=== PATIENT | male | born 1970 | race Caucasian/White ===

== ENCOUNTER 2016-12-30 16:50 | Emergency (ER) | payer BC, OTHER ==
[~2016-12-30] VITALS: Ht 175.3 cm; Wt 110.0 kg
[2016-12-30 16:53] VITALS: Ht 175.3 cm; Wt 110.0 kg
--- NOTE | 2016-12-30 17:10 | ERD ---
ER Documentation Chief Complaint Date/Time DATE: 12/30/16 TIME: 17:01 Chief Complaint SORE THROAT,COUGH,HEADACHE X 2 WEEKS HPI 46-year-old male who presented emergency room for sore throat, cough, headache for 2 weeks. He also reports that he has greenish phlegm whenever he coughs. He also complains of frontal sinus tenderness on palpation. Stated that he feels like he had a fever at night but never took his temperature. Stated that he been taking Advil as needed for his throat pain and sinus pain. Denies that this is the worst headache of his life, head trauma, loss of consciousness, dizziness, blurry vision, changes in vision, photophobia, ear pain, difficulty swallowing, neck pain, shoulder pain, chest pain, hemoptysis, abdominal pain, back pain, loss of appetite, nausea, vomiting, hematochezia, diarrhea, constipation, urinary symptoms, bladder and bowel incontinences, extremity weakness, extremity tenderness, numbness or tingling sensation, difficulty walking, recent travel, recent exposure to illness, recent antibiotic use in the last 3 months. Allergy: No known drug allergies. PMH: Denies. Medications: [id number] Advil. Surgery: Denies. Family history: Denies. 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 Denies smoking, use of alcohol, use of illegal drugs. ROS All systems reviewed and are negative except as per history of present illness. Medications Home Meds No Active Prescriptions or Reported Meds Allergies Allergies: Coded Allergies: No Known Drug Allergies (Verified Allergy, Mild, 09/28/11) PMhx/Soc History of Surgery: No Anesthesia Reaction: No Hx Neurological Disorder: No Hx Respiratory Disorders: No Hx Cardiac Disorders: No Hx Psychiatric Problems: No Hx Miscellaneous Medical Probl: No Hx Alcohol Use: No Hx Substance Use: No Hx Tobacco Use: No Physical Exam Vitals Vital Signs Date Time Temp Pulse Resp B/P Pulse Ox O2 Delivery O2 Flow Rate FiO2 12/30/16 16:53 98.9 66 18 141/85 98 Physical Exam CONSTITUTIONAL: Well-appearing; well-nourished. HEAD: Normocephalic; atraumatic. EYES: Conjunctiva clear, sclera non-icteric, EOM intact. PERRLA. Ears: Hearing intact. EACs clear, TMs non-bulging, non-inflamed, translucent & mobile, ossicles normal appearance, No obstructions, no erythema, no discharges Nose: No obstructions. No polyps. No external lesions. Mucosa non-inflamed. No external lesions, septum and turbinates normal. No rhinorrhea. No discharges. Frontal sinus is tender to palpation. Maxillary sinus is tender to palpation. MOUTH: Moist mucous membranes, no lesion, no obstructions, no vesicles, no thrush, patent airway Throat: Uvula in midline. Right tonsil is +2 with erythema, exudate. Left tonsil is +2 with erythema, exudate. Tolerating secretions well. Good gag reflex. Patent airway. Neck: Supple, without lesions, bruits, or adenopathy. No mass. Thyroid non- enlarged and non-tender to palpation. CHEST: Symmetrical chest. Respirations even and not labored. No retractions noted. CARDIOVASCULAR: Normal S1, S2. RRR. No murmurs, gallops. RESPIRATORY: Normal chest excursion with respiration; breath sounds clear and equal bilaterally; no wheezes, rhonchi, or rales. Breathing even and unlabored. Speaking in clear, full, and complete sentences w/ ease. ABDOMEN: Normal bowel sounds normal. Soft, round, non-distended, non-guarding, no tenderness, no rebound, no organomegaly, no masses, no pulsating abdominal mass. No hernia. No peritoneal signs. : No CVA tenderness. BACK: Symmetrical shoulder. Spine is midline without deformity, tenderness. No evidence of trauma or deformity. PELVIS: Stable pelvis. No evidence of trauma or deformity. MUSCULOSKELETAL: Normal gait and station. No misalignment, asymmetry, crepitation, defects, tenderness, masses, effusions, decreased range of motion, instability, atrophy or abnormal strength or tone in the head, neck, spine, ribs , pelvis or extremities. No calf tenderness. NEUROVASCULAR: Distal pulses are present. Pedal pulse are present, equal, and normal. Capillary refills are < 2 seconds. NEUROLOGIC: Alert and oriented x4. Speaks full and clear sentences. Cranial Nerves II-XII normal. Sensation to pain, touch, and proprioception normal. Grossly unremarkable. No neurologic deficits. Romberg test is negative. PSYCHOLOGICAL: The patients mood and manner are appropriate. No hallucinations , delusions. Not SI. Not HI. Has the capacity to decide for self SKIN: Normal for age and ethnicity; warm; dry; good turgor; no apparent lesions or exudates. No rashes, hives, discoloration. Intact. Procedures/MDM Examination: Please see physical examination. Disease process, medical treatment was explained to the patient and family member. They verbalized understanding and agreed with the medical treatment, and follow-up care. Re-evaluation: Denies headache, dizziness, blurred vision, neck pain, difficulty swallowing, chest pain, shoulder pain, back pain, abdominal pain. No nausea and vomiting. Lung sounds are clear to auscultation. Tolerating secretions. Speaks full and clear sentences. Consultation: None. Differential diagnosis: Pneumonia versus bronchitis versus upper respiratory infection versus sinusitis versus strep throat versus otitis media Medical decision makin-year-old male who presented emergency room for sore throat, cough, headache for 2 weeks. He also reports that he has greenish phlegm whenever he coughs. He also complains of frontal sinus tenderness on palpation. Stated that he feels like he had a fever at night but never took his temperature. Stated that he been taking Advil as needed for his throat pain and sinus pain. Patient's complaint, patient's history about his complaint , my physical findings, evaluation are consistent with final diagnosis of tonsillitis, sinusitis, bronchitis. Medications prescribed are the following: Augmentin. Motrin. Pro-Air. Patient and family member are made aware of the side effects and adverse reactions of the medications prescribed. Instructed on when to seek emergent and medical attention in case allergic/anaphylactic reactions or severe side effects and or adverse reactions to medications. Patient and family member verbalized understanding. Patient instructed Instructed to follow-up with his PCP in 24-48 hours. Community resources also provided. Instructed to Call 911 for chest pain, shortness of breath. Advised to come back here in ED as soon as possible for severity of symptoms which includes but not limited to: any new symptoms; shortness of breath/difficulty of breathing; cardiovascular changes; severe gastrointestinal symptoms; signs and symptoms of bleeding and or infection; signs of compartment syndrome/neurovascular changes; neurological changes/deficits. Patient and family member verbalized understanding. Upon discharge, patient is alert and oriented x 4, speaks full and clear sentences, denies pain, has no neurological deficits, has no neurovascular deficits, difficulty of breathing. Breathing even and unlabored. Lung sounds are clear to auscultation. Not in distress. Appears comfortable. Ambulatory with steady gait. Appears satisfied with care provided here in ED. Departure Diagnosis: Primary Impression: Tonsillitis Additional Impressions: Sinusitis Sinusitis, acute frontal Sinusitis, acute maxillary Sinusitis, acute, maxillary Condition: Good Additional Instructions: Patient instructed Instructed to follow-up with his PCP in 24-48 hours. Community resources also provided. Instructed to Call 911 for chest pain, shortness of breath. Advised to come back here in ED as soon as possible for severity of symptoms which includes but not limited to: any new symptoms; shortness of breath/difficulty of breathing; cardiovascular changes; severe gastrointestinal symptoms; signs and symptoms of bleeding and or infection; signs of compartment syndrome/neurovascular changes; neurological changes/deficits. Patient and family member verbalized understanding. NHI PERKINS Dec 30, 2016 17:10
[2016-12-30] MEDS ORDERED: IBUP800T25 PO (17:11)
[2016-12-30] MEDS ORDERED: AMOX1TAB10 PO (17:11)
[2016-12-30] MEDS ORDERED: ALBU8.5H3 INH (17:11)
[2016-12-30] MEDS ORDERED: BENZ100C70 PO (17:12)
[2016-12-30] MEDS ORDERED: ACET325T33 PO (17:12)
== END 2016-12-30 17:15 | disposition home or self-care (01) ==
LOC: FTE 16:50 → E/R 17:15
DX: J03.90 Acute tonsillitis, unspecified (principal); J01.80 Other acute sinusitis; J20.9 Acute bronchitis, unspecified
CPT/HCPCS: 99284

== ENCOUNTER 2017-01-08 06:40 | Emergency (ER) | payer BC ==
[~2017-01-08] VITALS: Ht 175.3 cm; Wt 109.0 kg
[~2017-01-08 06:40] MED LIST: ACET325T33 PO; ALBU8.5H3 INH; AMOX1TAB10 PO; BENZ100C70 PO; DM H; IBUP800T25 PO
[2017-01-08 06:45] VITALS: Ht 175.3 cm; Wt 109.0 kg
[2017-01-08] MEDS ORDERED: KETOROLAC 30 MG INJ IM STA (06:57)
--- NOTE | 2017-01-08 07:01 | ERD ---
ER Documentation Chief Complaint Date/Time DATE: 01/08/17 TIME: 06:58 Chief Complaint left rib pain/injury HPI This is a very pleasant 46-year-old male no past medical history presents with left rib pain and injury while on the job. The patient states that while working approximately 5 days ago he was reaching and then came down and struck the left side of his rib on a metal bar. Since then the patient is describing moderate to severe pain with a pulling sensation in his ribs that is worse to touch. Worse with rotational movement. No significant shortness of breath, no abdominal pain, no nausea or vomiting. ROS All systems reviewed and are negative except as per history of present illness. Medications Home Meds Active Scripts Ibuprofen* (Motrin*) 800 Mg Tab, 800 MG PO Q6H Y for PAIN AND OR ELEVATED TEMP, #30 TAB Prov:RAMANA PRAJAPATI MD 01/08/17 Ondansetron (Ondansetron Odt) 4 Mg Tab.rapdis, 4 MG PO Q6H Y for NAUSEA AND/OR VOMITING, #10 TAB Prov:RAMANA PRAJAPATI MD 01/08/17 Hydrocodone/Acetaminophen ([place] 10-325 Tablet) 1 Each Tablet, 1 TAB PO Q6H Y for PAIN, #12 TAB Prov:RAMANA PRAJAPATI MD 01/08/17 Acetaminophen* (Tylenol*) 325 Mg Tablet, 2 TAB PO Q6 Y for PAIN AND OR ELEVATED TEMP, #20 TAB Prov:NHI PERKINS 12/30/16 Benzonatate* (Tessalon Perle*) 100 Mg Capsule, 100 MG PO Q8H Y for COUGH for 7 Days, CAP Prov:NHI PERKINS 12/30/16 Albuterol Sulfate* (Proair HFA*) 8.5 Gm Hfa.aer.ad, 2 PUFF INH Q4, #1 INHALER Prov:NHI PERKINS 12/30/16 Ibuprofen* (Motrin*) 800 Mg Tab, 800 MG PO Q6H Y for PAIN AND OR ELEVATED TEMP, #30 TAB Prov:NHI PERKINS 12/30/16 Amoxicillin/Potassium Clav (Amox-Clav 875-125 mg Tablet) 875-125 mg Tab, 1 TAB PO BID for 10 Days, #20 TAB Prov:PASILABAN,KLAR F 12/30/16 Allergies Allergies: Coded Allergies: No Known Drug Allergies (Verified Allergy, Mild, 09/28/11) PMhx/Soc History of Surgery: No Anesthesia Reaction: No Hx Neurological Disorder: No Hx Respiratory Disorders: No Hx Cardiac Disorders: No Hx Psychiatric Problems: No Hx Miscellaneous Medical Probl: No Hx Alcohol Use: No Hx Substance Use: No Hx Tobacco Use: No FmHx Family History: No diabetes Physical Exam Vitals Vital Signs Date Time Temp Pulse Resp B/P Pulse Ox O2 Delivery O2 Flow Rate FiO2 01/08/17 06:45 97.7 67 19 146/80 95 Physical Exam General: Well developed, well nourished, no acute distress Head: Normocephalic, atraumatic. Eyes: Pupils equally reactive, EOM intact ENT: Moist mucous membranes Neck: Supple, no lymphadenopathy Respiratory: Lungs clear bilaterally, no distress, reproducible tenderness along ribs 4 and 5 in the anterior axillary line on the left side of the chest without crepitus or deformity Cardiovascular: RRR, no murmurs, rubs, or gallops Abdominal: Soft, non-tender, non-distended, no peritoneal signs : Deferred MSK: No edema, no unilateral swelling, 5/5 strength Neurologic: Alert and oriented, moving all extremities, normal speech, no focal weakness, no cerebellar signs Skin: No rash Psych: Normal mood Results 24 hrs Current Medications Medications (Trade) Dose Ordered Sig/Nicole Route PRN Reason Start Time Stop Time Status Last Admin Dose Admin Ketorolac Tromethamine (Toradol) 30 mg ONCE STAT IM 01/08/17 06:57 01/08/17 06:58 DC 01/08/17 07:09 Procedures/MDM EKG, MONITORS, & DIAGNOSTIC IMAGING: X-ray left ribs: Radiology review shows no evidence of acute fractures or dislocations Chest x-ray: I reviewed and interpreted a 1 view of the chest Mediastinum: No enlargement Cardiac silhouette: No cardiomegaly Airspace: Clear lung meade bilaterally without evidence of pneumothorax Bones: No evidence of fracture MEDICAL DECISION MAKING: The patient's presentation is most consistent with likely left rib contusion versus fracture. No signs or symptoms concerning for pneumothorax or splenic injury. Patient has a benign abdominal examination. No indication for CT imaging. 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 The patient was given Toradol. He will be given [place]. Inspiratory spirometer will also be provided. I discussed expectant management of rib contusion. ER COURSE: Pain improved after Toradol. The patient was advised to follow-up with primary care physician. He will likely need to file Workmen's Compensation secondary to injury on the job. I kept the patient and/or family informed of laboratory and diagnostic imaging results throughout the emergency room course. DISPOSITION PLAN: We discussed follow up with the patient's primary care doctor within 24 to 48 hours as needed. We also discussed return to the emergency room for worsening symptoms or worsening condition. Outpatient referral: [None required] Discharge Medications: [place], Zofran, Motrin We discussed the use of narcotics including avoidance of operating heavy machinery and driving as well as its addictive properties. Departure Diagnosis: Primary Impression: Contusion of rib on left side Encounter type: initial encounter Qualified Code: S20.212A - Contusion of rib on left side, initial encounter Condition: Stable RAMANA PRAJAPATI MD Jan 08, 2017 07:00
--- NOTE | 2017-01-08 08:00 | RADRPT ---
PROCEDURE: XR ribs . CLINICAL INDICATION: pain TECHNIQUE: AP and oblique views of the left ribs were obtained. COMPARISON: None FINDINGS: The bone mineralization is normal. There is no acute fracture or subluxation. The soft tissues are unremarkable. RPTAT: AA IMPRESSION: No acute fracture. Physician Good Date Time Electronically viewed and signed by Parth Croft Physician on 01/08/2017 07:59 RA/
--- NOTE | 2017-01-08 08:00 | RADRPT ---
PROCEDURE: XR Chest. CLINICAL INDICATION: left rib pain s/p blunt trauma TECHNIQUE: Single frontal view of the chest was obtained. COMPARISON: None. FINDINGS: The heart and mediastinum are within normal limits. The lungs are clear. There is no significant pleural effusion or pneumothorax. IMPRESSION: No acute disease. RPTAT: EE Physician Good Date Time Electronically viewed and signed by Parth Croft Physician on 01/08/2017 08:00 RA/
[2017-01-08] MEDS ORDERED: HYDR-902 PO (08:14)
[2017-01-08] MEDS ORDERED: IBUP800T25 PO (08:14)
[2017-01-08] MEDS ORDERED: ONDA4TAB14 PO (08:14)
== END 2017-01-08 08:26 | disposition home or self-care (01) ==
LOC: FTE 06:40
DX: S20.212A Contusion of left front wall of thorax, initial encounter (principal); W22.8XXA Striking against or struck by other objects, initial encounter; Y92.9 Unspecified place or not applicable
CPT/HCPCS: 71010; 71100; J1885; 96372

== ENCOUNTER 2017-06-13 02:59 | Emergency (ER) | payer BC, OTHER ==
[~2017-06-13] VITALS: Ht 177.8 cm; Wt 118.0 kg
[~2017-06-13 02:59] MED LIST changes: -DM H; +HYDR-902 PO; +ONDA4TAB14 PO
[2017-06-13 03:02] VITALS: Ht 177.8 cm; Wt 118.0 kg
[2017-06-13] MEDS ORDERED: KETOROLAC 60 MG INJ IM STA (04:58)
[2017-06-13] MEDS ORDERED: IBUP-1542 PO (05:12)
[2017-06-13] MEDS ORDERED: CYCL-319 PO (05:12)
[2017-06-13] MEDS ORDERED: HYDR-906 PO (05:12)
--- NOTE | 2017-06-13 05:52 | ERD ---
ER Documentation Chief Complaint Date/Time DATE: 06/13/17 TIME: 05:49 Chief Complaint c/o right thigh pain radiating to right ankle. No injury HPI 46-year-old male presents to emergency department for complaints of right thigh pain after playing basketball 4 days ago. Patient states that he was running for long periods of time, had 7 games of basketball in 1 day. Patient states that he was stretching before and after. The next day, he started to have the pain in the right thigh, radiated to the right lower leg, denies any redness or swelling. Patient denies any fever or chills. Patient complains of muscle spasm on the right thigh area, and is complaining of pain throbbing pain, extension scale, as was upon touching the area. Patient is able to move the joints of the right hip and right knee without any restriction. Denies any numbness or tingling. ROS All systems reviewed and are negative except as per history of present illness. Medications Home Meds Active Scripts Ibuprofen* (Motrin*) 600 Mg Tab, 600 MG PO Q6H Y for PAIN AND OR ELEVATED TEMP, #30 TAB Prov:HAKAN HENLEY NP 06/13/17 Cyclobenzaprine Hcl* (Cyclobenzaprine Hcl*) 10 Mg Tablet, 10 MG PO TID, #15 TAB Prov:HAKAN HENLEY NP 06/13/17 Hydrocodone/Acetaminophen ([place] 5-325 Tablet) 1 Each Tablet, 1 TAB PO Q6H Y for SEVERE PAIN LEVEL 7-10, #20 TAB Prov:HAKAN HENLEY NP 06/13/17 Ibuprofen* (Motrin*) 800 Mg Tab, 800 MG PO Q6H Y for PAIN AND OR ELEVATED TEMP, #30 TAB Prov:RAMANA PRAJAPATI MD 01/08/17 Ondansetron (Ondansetron Odt) 4 Mg Tab.rapdis, 4 MG PO Q6H Y for NAUSEA AND/OR VOMITING, #10 TAB Prov:RAMANA PRAJAPATI MD 01/08/17 Hydrocodone/Acetaminophen ([place] 10-325 Tablet) 1 Each Tablet, 1 TAB PO Q6H Y for PAIN, #12 TAB Prov:RAMANA PRAJAPATI MD 01/08/17 Acetaminophen* (Tylenol*) 325 Mg Tablet, 2 TAB PO Q6 Y for PAIN AND OR ELEVATED TEMP, #20 TAB Prov:NHI PERKINS 12/30/16 Benzonatate* (Tessalon Perle*) 100 Mg Capsule, 100 MG PO Q8H Y for COUGH for 7 Days, CAP Prov:NHI PERKINS 12/30/16 Albuterol Sulfate* (Proair HFA*) 8.5 Gm Hfa.aer.ad, 2 PUFF INH Q4, #1 INHALER Prov:NHI PERKINS 12/30/16 Ibuprofen* (Motrin*) 800 Mg Tab, 800 MG PO Q6H Y for PAIN AND OR ELEVATED TEMP, #30 TAB Prov:NHI PERKINS 12/30/16 Amoxicillin/Potassium Clav (Amox-Clav 875-125 mg Tablet) 875-125 mg Tab, 1 TAB PO BID for 10 Days, #20 TAB Prov:NHI PERKINS 12/30/16 Allergies Allergies: Coded Allergies: No Known Drug Allergies (Verified Allergy, Mild, 09/28/11) PMhx/Soc Medical and Surgical Hx: pt denies Medical Hx, pt denies Surgical Hx History of Surgery: No Anesthesia Reaction: No Hx Neurological Disorder: No Hx Respiratory Disorders: No Hx Cardiac Disorders: No Hx Psychiatric Problems: No Hx Miscellaneous Medical Probl: No Hx Alcohol Use: No Hx Substance Use: No Hx Tobacco Use: No Smoking Status: Never smoker FmHx Family History: No coronary disease, No diabetes, No other Physical Exam Vitals Vital Signs Date Time Temp Pulse Resp B/P Pulse Ox O2 Delivery O2 Flow Rate FiO2 06/13/17 03:02 97.4 67 18 148/96 97 Physical Exam GENERAL: The patient is well developed and appropriate for usual state of health, in no apparent distress. CHEST: Clear to auscultation bilaterally. There are no rales, wheezes or rhonchi. HEART: Regular rate and rhythm. No murmurs, clicks, rubs or gallops. No S3 or S4. ABDOMEN: Soft, nontender and nondistended. Good bowel sounds. No rebound or guarding. No gross peritonitis. No gross organomegaly or masses. No Aleman sign or McBurney point tenderness. BACK: No midline or flank tenderness. EXTREMITIES: Tenderness on palpation of the right hamstring, thigh area. Equal pulses bilaterally. There is no peripheral clubbing, cyanosis or edema. No focal swelling or erythema. Full range of motion. Grossly neurovascularly intact. NEURO: Alert and oriented. Cranial nerves 2-12 intact. Motor strength in all 4 extremities with 5/5 strength. Sensation grossly intact. Normal speech and gait. SKIN: There is no apparent rash or petechia. The skin is warm and dry. HEMATOLOGIC AND LYMPHATIC: There is no evidence of excessive bruising or lymphedema. No gross cervical, axillary, or inguinal lymphadenopathy. Results 24 hrs Current Medications Medications (Trade) Dose Ordered Sig/Nicole Route PRN Reason Start Time Stop Time Status Last Admin Dose Admin Ketorolac Tromethamine (Toradol) 60 mg ONCE STAT IM 06/13/17 04:58 06/13/17 05:00 DC 06/13/17 05:19 Patient was given medication for pain here in emergency department, after treatment, patient verbalized feeling much better. Patient's pain is improved. Procedures/MDM Medical Decision Making: Patient's pain is most likely consistent with a hamstring strain. There is no suspicion for neurovascular compromise. Patient has intact sensation and circulation of the affected extremity. There is low suspicion for septic arthritis. Patient does not have any fever. Radiology exams not indicated at this time Disposition: Home. Patient is given prescription for ibuprofen for pain, [place] for severe pain, Flexeril for muscle spasms. Patient was advised to elevate the affected area and apply ice on affected area. Patient was advised that if symptoms are worse, numbness, tingling, high fever, unable to move joint, worsening symptoms, to return to emergency department immediately. Otherwise, patient is advised to follow up with the primary care doctor in 5-7 days for reevaluation of symptoms. Disclaimer: Inadvertent spelling and grammatical errors are likely due to EHR/ dictation software use and do not reflect on the overall quality of patient care. Also, please note that the electronic time recorded on this note does not necessarily reflect the actual time of the patient encounter. Departure Diagnosis: Primary Impression: Hamstring strain Laterality: right Qualified Code: S76.311A - Strain of right hamstring Condition: Stable Patient Instructions: Seated Hamstring Stretch, Muscle Strain, Extremity HAKAN HENLEY NP Jun 13, 2017 05:51
== END 2017-06-13 05:40 | disposition home or self-care (01) ==
LOC: FTE 02:59
DX: S76.311A Strain of muscle, fascia and tendon of the posterior muscle group at thigh level, right thigh, initial encounter (principal); X58.XXXA Exposure to other specified factors, initial encounter; Y92.9 Unspecified place or not applicable
CPT/HCPCS: 99284; J1885